=== PATIENT | female | born 1990 ===

== ENCOUNTER → 2023-05-28 16:10 | Outpatient (CLI) | payer OTHER, SELFPAY ==
--- NOTE | 2023-05-28 16:12 | DI.MRI.S_ITS ---
PROCEDURE: MR HEAD/BRAIN WO CON INDICATIONS: headache TECHNIQUE: Noncontrast axial T1 spin echo, axial T2 fast spin echo, sagittal and axial FLAIR, coronal T2 fast spin echo, axial gradient echo, axial diffusion and ADC through the brain. COMPARISON: None. FINDINGS: Image quality: Excellent. CSF Spaces: Basal cisterns are patent. No extra-axial fluid collections. Ventricles are normal in size and shape. Brain: No intracranial masses or hemorrhage. Joseph/white matter interface is normal. Brainstem appears normal. Diffusion-weighted images demonstrate no acute ischemic insult. No chronic ischemic insults. Normal intravascular flow voids are present. Skull and face: Calvarium has normal marrow signal. Orbits appear normal. Sinuses: Sinuses and mastoids are clear. IMPRESSION: Unremarkable intracranial study, without an imaging explanation found for the patient's presenting history of headache. To the limits of this noncontrast MRI, no findings of masses or mass effect can be seen. No brain edema or hydrocephalus can be seen Dictated by: Jan Sloan M.D. on 05/28/2023 at 16:28 Approved by: Jan Sloan M.D. on 05/28/2023 at 16:29
== END ==
PROVIDERS: Referring Provider Preventive Medicine Aerospace Medicine; Visit Provider Preventive Medicine Aerospace Medicine
DX: G43.909 Migraine, unspecified, not intractable, without status migrainosus (principal)
CPT/HCPCS: 70551

== ENCOUNTER → 2024-07-12 09:30 | Outpatient (CLI) | payer OTHER, SELFPAY ==
--- NOTE | 2024-07-12 09:31 | DI.MG.S_ITS ---
BILATERAL DIGITAL DIAGNOSTIC MAMMOGRAM 3D/2D: 07/12/2024 CLINICAL: Left breast lump. Baseline. No prior exams were available for comparison. There are scattered areas of fibroglandular density (category b / 25%-50% glandular tissue). A BB marker was placed in the area of clinical concern in the left breast, and no mammographic abnormality is identified. There is a 0.6 cm oval mass with a circumscribed margin in the left breast at 11 o'clock posterior depth. No other significant masses, calcifications, or other findings are seen in either breast. IMPRESSION: INCOMPLETE: NEED ADDITIONAL IMAGING EVALUATION 1) Left breast 0.6 cm oval mass at 11 o'clock posterior depth. Finding resembles an intramammary lymph node. Recommend further evaluation with targeted breast ultrasound, which will immediately follow this exam. 2) No mammographic abnormality in the area of clinical concern in the left breast. Recommend further evaluation with targeted breast ultrasound, which will immediately follow this exam. Based on the Tyrer Cuzick model (a risk assessment model) the patient's lifetime risk is 15.5% and her 10 year risk is 0.8%. According to the ACR, ACS, and NCCN guidelines, an annual breast MRI exam along with mammogram is recommended if the patient's lifetime risk is 20% or greater. This exam was interpreted at Station ID: [id number]. NOTE: For mammograms, a report in lay terms will be sent to the patient. Approximately 15% of breast malignancies will not be visualized mammographically. In the management of a palpable breast mass, a negative mammogram must not discourage biopsy of a clinically suspicious lesion. Electronically Signed By: Gayla Shane M.D., Ph.D. eb/:07/12/2024 12:42:48 letter sent: Additional Imaging Needed ACR BI-RADS Category 0: Incomplete: Need Additional Imaging Evaluation
--- NOTE | 2024-07-12 09:31 | DI.US.S_ITS ---
PROCEDURE: US BREAST LT LIMITED COMPARISON: None. INDICATIONS: LEFT BREAST LUMP FINDINGS: IMPRESSION: Dictated by: Gayla Shane M.D.,Ph.D. on 07/12/2024 at 12:44 Approved by: Gayla Shane M.D.,Ph.D. on 07/12/2024 at 12:46
--- NOTE | 2024-07-12 10:18 | DI.US.S_ITS ---
Patient Name: FEI BARTH date: 1990 Sex: F Attending Physician: Elder Indications: Date: 07/12/2024 12:46 At the request of: GERTRUDIS SOLORZANO Procedure: US breast LT limited LIMITED ULTRASOUND OF LEFT BREAST AND AXILLA: 07/12/2024 CLINICAL: Palpable left breast lump. Comparison is made to exam dated: 07/12/2024 mammogram - [facility]. Real-time ultrasound of the left breast 10-1 o'clock, and axilla regions was performed. Joseph scale images of the real-time examination were reviewed. No sonographic abnormality is seen in the area of clinical concern in the left breast at 1:30 o'clock, 9 cm from the nipple. No sonographic correlate for the mammographic finding is identified from 10 to 12 o'clock at a distance of 3 to 9 cm from the nipple. IMPRESSION: PROBABLY BENIGN 1) No sonographic or mammographic abnormality is seen in the area of clinical palpable concern. Clinical follow-up is recommended, and further management of palpable abnormalities or other focal signs or symptoms should be based on the results of clinical evaluation. If palpable abnormality or other concerning symptom persists or progresses, further clinical evaluation should be considered. 2) Left breast 0.6 cm mass at 11 o'clock posterior depth without ultrasound correlate. Finding resembles an intramammary lymph node and probably benign. Recommend mammogram with possible ultrasound in 6 to demonstrate stability. Findings and recommendations were conveyed to the patient during today's evaluation. This exam was interpreted at Station ID: [id number]. Electronically Signed By: Gayla Shane M.D., Ph.D. Continued Report - Page 2 of 2 Patient Name: FEI BARTH date: 1990 Sex: F Attending Physician: Elder Indications: Date: 07/12/2024 12:46 At the request of: GERTRUDIS SOLORZANO Procedure: US breast LT limited eb/:07/12/2024 12:46:49 letter sent: Followup Recommended ACR BI-RADS Category 3: Probably Benign
== END ==
DX: N63.22 Unspecified lump in the left breast, upper inner quadrant (principal); R92.8 Other abnormal and inconclusive findings on diagnostic imaging of breast
CPT/HCPCS: 76642; 77066; G0279